=== PATIENT | male | born 1940 | race Caucasian/White ===

== ENCOUNTER 2016-07-06 17:15 | Inpatient (IN) | payer MEDICARE, OTHER ==
[~2016-07-06] VITALS: Ht 170.2 cm; Wt 72.7 kg
[2016-07-06 18:03] LABS: BASO % 0.2 % (0.2-1.2); EOS # 0.2 10_X3_uL (0.0-0.5); EOS % 1.8 % (0.8-7.0); GRAN # 6.6 10_X3_uL (1.8-5.4); GRAN % 77.6 % (34.0-67.9); HEMOGLOBIN 15.2 g/dL (13.7-17.5); LYMPH # 1.1 10_X3_uL (1.3-3.6); LYMPH % 13.3 % (21.8-53.1); MEAN CORPUSCULAR HEMOGLOBIN 29.2 pg (27.0-33.0); MEAN CORPUSCULAR HGB CONC 35.3 g/dL (32.0-36.0); MEAN CORPUSCULAR VOLUME 82.5 fL (79-92); MEAN PLATELET VOLUME 9.8 fl (7.5-11.5); MONO # 0.6 10_X3_uL (0.3-0.8); MONO % 7.1 % (5.3-12.2); PLATELET COUNT 197 x10_3/uL (163-337); RED BLOOD COUNT 5.21 x10_6/uL (4.6-6.1); RED CELL DISTRIBUTION WIDTH 14.5 % (11.6-14.4); WHITE BLOOD COUNT 8.6 x10_3/uL (4.2-9.1)
[2016-07-06 18:17] LABS: INR 2.1 (1.0-1.1); PROTHROMBIN TIME (PATIENT) 21.8 SECONDS (9.6-10.8)
[2016-07-06 18:21] LABS: ALKALINE PHOSPHATASE 112 U/L (50-136); ALT/SGPT 21 U/L (7.53-40.17); AST/SGOT 28 U/L (6.66-35.34); BILIRUBIN,TOTAL 0.73 mg/dL (0.0-1.0); BLOOD UREA NITROGEN 26 mg/dL (7-18); CALCIUM 8.9 mg/dL (8.7-10.7); CARBON DIOXIDE 25 mmol/L (21-32); GLUCOSE,RANDOM 247 mg/dL (70-99); SODIUM 138 mmol/L (136-145); TOTAL PROTEIN 6.9 gm/dL (6.4-8.2)
[2016-07-06 18:49] LABS: URINE BILIRUBIN NEGATIVE (NEGATIVE); URINE BLOOD 1+ (NEGATIVE); URINE KETONE TRACE (NEGATIVE); URINE LEUKOCYTE ESTERASE NEGATIVE (NEGATIVE); URINE NITRATE NEGATIVE (NEGATIVE); URINE PROTEIN 2+ (NEGATIVE)
[2016-07-06 19:01] LABS: URINE AMORPHOUS SEDIMENT TRACE; URINE BACTERIA TRACE (NONE SEEN); URINE GLUCOSE (UA) 1000 mg/dL (NORMAL); URINE RBC 0-5 /[HPF] (0-2); URINE SQUAMOUS EPITHELIAL CELL 0-10 /[HPF] (NONE SEEN); URINE WBC 0-5 /[HPF] (0-3)
[2016-07-07 07:00] LABS: INR 2.8 (1.0-1.1); PROTHROMBIN TIME (PATIENT) 29.5 SECONDS (9.6-10.8)
[2016-07-07 07:08] LABS: AHDL CHOLESTEROL 35 mg/dL (>40); ALBUMIN 2.9 gm/dL (3.4-5.0); ALKALINE PHOSPHATASE 81 U/L (50-136); ALT/SGPT 20 U/L (7.53-40.17); AST/SGOT 20 U/L (6.66-35.34); BLOOD UREA NITROGEN 26 mg/dL (7-18); CALCIUM 7.9 mg/dL (8.7-10.7); CARBON DIOXIDE 21 mmol/L (21-32); CHOLESTEROL 106 mg/dL (0-200); CREATININE 0.9 mg/dL (0.6-1.3); GLUCOSE,RANDOM 180 mg/dL (70-99); LDL CHOLESTEROL 60 mg/dL (0-99); POTASSIUM 3.4 mmol/L (3.5-5.1); SODIUM 137 mmol/L (136-145); TOTAL PROTEIN 5.2 gm/dL (6.4-8.2); TRIGLYCERIDES 64 mg/dL (30-200)
[2016-07-07 07:10] LABS: HEMATOCRIT 34.5 % (40-51); HEMOGLOBIN 12.4 g/dL (13.7-17.5); MEAN CORPUSCULAR HEMOGLOBIN 29.7 pg (27.0-33.0); MEAN CORPUSCULAR HGB CONC 35.9 g/dL (32.0-36.0); MEAN CORPUSCULAR VOLUME 82.7 fL (79-92); MEAN PLATELET VOLUME 9.6 fl (7.5-11.5); RED BLOOD COUNT 4.17 x10_6/uL (4.6-6.1); RED CELL DISTRIBUTION WIDTH 14.4 % (11.6-14.4); WHITE BLOOD COUNT 8.2 x10_3/uL (4.2-9.1)
[2016-07-08 06:37] LABS: HEMATOCRIT 35.9 % (40-51); HEMOGLOBIN 12.7 g/dL (13.7-17.5); MEAN CORPUSCULAR HEMOGLOBIN 29.5 pg (27.0-33.0); MEAN CORPUSCULAR HGB CONC 35.4 g/dL (32.0-36.0); MEAN CORPUSCULAR VOLUME 83.3 fL (79-92); MEAN PLATELET VOLUME 9.7 fl (7.5-11.5); RED BLOOD COUNT 4.31 x10_6/uL (4.6-6.1); RED CELL DISTRIBUTION WIDTH 14.5 % (11.6-14.4); WHITE BLOOD COUNT 7.1 x10_3/uL (4.2-9.1)
[2016-07-08 06:58] LABS: INR 3.6 (1.0-1.1); PROTHROMBIN TIME (PATIENT) 37.5 SECONDS (9.6-10.8)
[2016-07-08 07:22] LABS: ALBUMIN 3.3 gm/dL (3.4-5.0); ALKALINE PHOSPHATASE 85 U/L (50-136); ALT/SGPT 21 U/L (7.53-40.17); AST/SGOT 20 U/L (6.66-35.34); BILIRUBIN,TOTAL 0.51 mg/dL (0.0-1.0); BLOOD UREA NITROGEN 23 mg/dL (7-18); CALCIUM 8.4 mg/dL (8.7-10.7); CARBON DIOXIDE 22 mmol/L (21-32); GLUCOSE,RANDOM 116 mg/dL (70-99); MAGNESIUM 1.5 mg/dL (1.8-2.4); POTASSIUM 3.8 mmol/L (3.5-5.1); SODIUM 141 mmol/L (136-145); TOTAL PROTEIN 5.7 gm/dL (6.4-8.2)
[2016-07-09 06:58] LABS: MEAN CORPUSCULAR HEMOGLOBIN 29.3 pg (27.0-33.0); MEAN CORPUSCULAR HGB CONC 35.1 g/dL (32.0-36.0); MEAN CORPUSCULAR VOLUME 83.3 fL (79-92); MEAN PLATELET VOLUME 9.5 fl (7.5-11.5); RED BLOOD COUNT 4.44 x10_6/uL (4.6-6.1); RED CELL DISTRIBUTION WIDTH 14.6 % (11.6-14.4); WHITE BLOOD COUNT 5.4 x10_3/uL (4.2-9.1)
[2016-07-09 07:10] LABS: INR 2.3 (1.0-1.1)
[2016-07-09 07:11] LABS: BLOOD UREA NITROGEN 26 mg/dL (7-18); CALCIUM 8.7 mg/dL (8.7-10.7); CARBON DIOXIDE 23 mmol/L (21-32); GLUCOSE,RANDOM 124 mg/dL (70-99); MAGNESIUM 1.8 mg/dL (1.8-2.4); POTASSIUM 3.9 mmol/L (3.5-5.1); SODIUM 141 mmol/L (136-145)
== END 2016-07-09 10:10 | disposition home or self-care (01) | DRG 871 ==
LOC: ER 17:15 → MS 19:00
PROVIDERS: Internal Medicine; ADMIT Family Medicine
DX: A41.9 Sepsis, unspecified organism (principal); J18.9 Pneumonia, unspecified organism; J44.0 Chronic obstructive pulmonary disease with (acute) lower respiratory infection; J44.1 Chronic obstructive pulmonary disease with (acute) exacerbation; E87.6 Hypokalemia; E11.9 Type 2 diabetes mellitus without complications; E83.42 Hypomagnesemia; I10 Essential (primary) hypertension; R79.1 Abnormal coagulation profile; I48.91 Unspecified atrial fibrillation; Z95.0 Presence of cardiac pacemaker; Z79.82 Long term (current) use of aspirin; Z79.899 Other long term (current) drug therapy; Z79.01 Long term (current) use of anticoagulants; Z79.84 Long term (current) use of oral hypoglycemic drugs; Z87.891 Personal history of nicotine dependence
CPT/HCPCS: 36415; 71020; 71250; 80048; 80053; 80061; 81001; 82962; 83036; 83605; 83735; 85025; 85610; 86738; 87040; 87070; 87205; 87400; 87449; 94640; 96365; 96367; 99070; 99283; 99284-25; J7050

== ENCOUNTER 2016-07-06 17:15 | Emergency (ER) | payer MEDICARE | END 2016-07-06 19:00 | disposition other institution (70) | LOC: ER 17:15 | DX: J18.9 Pneumonia, unspecified organism (principal); I48.91 Unspecified atrial fibrillation; I10 Essential (primary) hypertension; Z95.0 Presence of cardiac pacemaker; Z79.899 Other long term (current) drug therapy; Z79.84 Long term (current) use of oral hypoglycemic drugs; Z79.01 Long term (current) use of anticoagulants | CPT/HCPCS: 99283; 99284-25 ==